=== PATIENT | male | born 1975 | race Caucasian/White ===

== ENCOUNTER 2018-10-27 13:35 | Emergency (ER) | payer OTHER ==
--- OUTSIDE RECORDS SUMMARY | 2018-10-27 13:37 | XMS REPORT | Clinical Summary ---
:1975 [facility] [address] [place] [address] Care Team Providers Name Role Phone Asked, No Pcp Primary Care Provider Unavailable Allergies Active Allergy Reactions Severity Noted Date Comments Bee Venom Protein (Honey Bee) 10/21/2016 Penicillins 10/21/2016 Medications Not on file Active Problems Not on file Social History Tobacco Use Types Packs/Day Years Used Date Current Every Day Smoker Alcohol Use Drinks/Week oz/Week Comments Yes Sex Assigned at Date Recorded Not on file Job Start Date Occupation Industry Not on file Not on file Not on file Travel History Travel Start Travel End No recent travel history available. Last Filed Vital Signs Not on file Plan of Treatment Not on file Results Not on fileafter 10/26/2017 Insurance Payer Benefit Plan / Group Subscriber ID Type Phone Address [facility] xxxxxxxxx (Work) [employer] Self 1975 [employer] (Home) [employer] [phone] [place], [place] (Work) [phone] Advance Directives Patient has advance care planning documents on file. For more information, please contact:[facility] [place] [address]
[2018-10-27 14:09] LABS: Absolute Lymphocytes (CBC) 1.7 K/uL (0.7-4.9); Absolute Monocytes 0.4 K/uL (0.1-1.3); Absolute Neutrophil 1.7 K/uL (1.8-8.0); Basophils % 2.2 % (0-1.3); Eosinophils % 4.4 % (0-4.4); Hematocrit 43.6 % (39.6-49.0); Lymphocytes % 41.3 % (15.3-44.8); MPV 8.6 fL (7.6-11.3); Monocytes % 10.8 % (3.3-12.3); RBC Red Blood Cell Count 4.72 M/uL (4.33-5.43)
[2018-10-27] MEDS ORDERED: ASPIRIN 81 MG CHEWABLE TABLET ONE (14:14)
[2018-10-27] MEDS ORDERED: NA CHLORIDE 0.9% 1,000 ML ONE (14:14)
[2018-10-27 14:29] LABS: ALT/SGPT 33 U/L (12-78); AST/SGOT 14 U/L (15-37); Albumin 3.7 g/dL (3.4-5.0); Alkaline Phosphatase 73 U/L (45-117); BUN Blood Urea Nitrogen 22 mg/dL (7-18); Bicarbonate 27 mmol/L (21-32); Bilirubin Direct < 0.1 mg/dL (0-0.2); Bilirubin Total 0.2 mg/dL (0.2-1.0); Glucose Level 126 mg/dL (74-106); Lipase 258 U/L (73-393); Magnesium 2.2 mg/dL (1.8-2.4); NT PRO-BNP 6 pg/mL (<125); Potassium 4.4 mmol/L (3.5-5.1); Protein, Total 6.6 g/dL (6.4-8.2); Sodium Level 141 mmol/L (136-145); Troponin (Emerg Dept Use Only) < 0.02 ng/mL (0.0-0.045)
[2018-10-27 14:36] LABS: Protime INR 0.97
--- NOTE | 2018-10-27 15:05 | ER ---
Nurse's Notes [facility] Name: Dung Carr Age: 43 yrs Sex: Male : 1975 Arrival Date: 10/27/2018 Time: 13:38 Bed 23 Private MD: Diagnosis: Chest pain, unspecified;Essential (primary) hypertension Presentation: 10/27 13:47 Presenting complaint: Patient states: Family hx of [place], DAD,BROTHER,KRISTI, reports sg having left sided chest pain x1 week radiates now down into the left arm , numbness to pinky and fourth fingers at this time, denies SOB/DIZZINESS/N/V/D/FEVER. 13:48 Acuity: GERONIMO 3 sg 14:39 Transition of care: patient was not received from another setting of care. Onset of la1 symptoms was October 27, 2018. Risk Assessment: Do you want to hurt yourself or someone else? Patient reports no desire to harm self or others. Initial Sepsis Screen: Does the patient meet any 2 criteria? No. Patient's initial sepsis screen is negative. Does the patient have a suspected source of infection? No. Patient's initial sepsis screen is negative. Care prior to arrival: None. 14:39 Method Of Arrival: Ambulatory la1 Historical: - Allergies: 13:46 No Known Allergies; sg - Home Meds: 13:46 None [Active]; sg - PMHx: 13:46 None; sg - PSHx: 13:46 Intestine Repair; sg - Immunization history:: Adult Immunizations up to date. - Social history:: Smoking status: Patient/guardian denies using tobacco. - Ebola Screening: : Patient negative for fever greater than or equal to 101.5 degrees Fahrenheit, and additional compatible Ebola Virus Disease symptoms Patient denies exposure to infectious person Patient denies travel to an Ebola-affected area in the 21 days before illness onset No symptoms or risks identified at this time. Screenin:38 Abuse screen: Denies threats or abuse. Nutritional screening: No deficits noted. la1 Tuberculosis screening: No symptoms or risk factors identified. Fall Risk None identified. Assessment: 14:38 General: Appears in no apparent distress. Behavior is calm, cooperative. Pain: la1 Complains of pain in chest. Neuro: Level of Consciousness is awake, alert, obeys commands, Oriented to person, place, time, situation. Cardiovascular: Heart tones S1 S2 present Capillary refill < 3 seconds Patient's skin is warm and dry. Rhythm is sinus rhythm. Respiratory: Airway is patent Trachea midline Respiratory effort is even, unlabored, Respiratory pattern is regular, symmetrical, Breath sounds are clear bilaterally. GI: Bowel sounds present X 4 quads. Abd is soft and non tender X 4 quads. : No signs and/or symptoms were reported regarding the genitourinary system. 15:19 Reassessment: Patient appears in no apparent distress at this time. No changes from la1 previously documented assessment. Patient and/or family updated on plan of care and expected duration. Pain level reassessed. Vital Signs: 13:46 Weight 68.04 kg; Height 5 ft. 3 in. (160.02 cm); sg 13:47 BP 128 / 88; Pulse 80; Resp 17; Temp 98.0; Pulse Ox 100% on R/A; sg 15:18 BP 125 / 71; Pulse 86; Resp 18; Pulse Ox 97% on R/A; la1 13:46 Body Mass Index 26.57 (68.04 kg, 160.02 cm) sg ED Course: 13:38 Patient arrived in ED. as 13:46 Victoriano Umanzor MD is Attending Physician. misty 13:46 Arm band placed on. sg 13:47 Singh Ann RN is Primary Nurse. la1 13:48 Triage completed. sg 14:39 Bed in low position. Call light in reach. Side rails up X 1. la1 14:39 Inserted saline lock: 20 gauge in right forearm, using aseptic technique. Blood la1 collected. 15:04 Ady Krishna MD is Referral Physician. misty 15:19 IV discontinued, intact, bleeding controlled, No redness/swelling at site. Pressure la1 dressing applied. 15:19 No provider procedures requiring assistance completed. la1 15:41 XRAY Chest (1 view) In Process Unspecified. EDMS Administered Medications: 14:06 Drug: NS 0.9% 1000 ml Route: IV; Rate: 1 bolus; Site: right forearm; la1 15:19 Follow up: IV Status: Completed infusion la1 14:06 Drug: Aspirin Chewable Tablet 162 mg Route: PO; la1 15:19 Follow up: Response: No adverse reaction la1 Outcome: 15:04 Discharge ordered by . misty 15:19 Discharged to home ambulatory. la1 15:19 Condition: stable 15:19 Discharge instructions given to patient, Instructed on discharge instructions, follow up and referral plans. medication usage, Demonstrated understanding of instructions, follow-up care, medications, Prescriptions given X 1. 15:19 Patient left the ED. la1 Signatures: Dispatcher [employer] EDMS Joshua Lobo RN RN sg Anderson, Corey, MD MD cha Martinez, Amelia as Attema, Lee, RN RN la1
--- NOTE | 2018-10-27 15:05 | EDPHYS ---
Physician Documentation [facility] Name: Dung Carr Age: 43 yrs Sex: Male : 1975 Arrival Date: 10/27/2018 Time: 13:38 Bed 23 Private MD: ED Physician Victoriano Umanzor HPI: 10/27 13:56 This 43 yrs old Male presents to ER via Unassigned with complaints of misty Abdominal Pain, Chest Pain, Numbness Of Hand. 13:56 The patient or guardian reports chest pain that is located primarily in the substernal misty area, anterior chest wall. Onset: 2 day(s) ago. The pain radiates to the left arm. Associated signs and symptoms: The patient has no apparent associated signs or symptoms. The chest pain is described as sharp. Duration: The patient or guardian reports multiple episodes, with no pattern. Severity of pain: At its worst the pain was mild in the emergency department the pain has resolved and did so just prior to arrival. The patient has experienced similar episodes in the past, a few times. Historical: - Allergies: 13:46 No Known Allergies; sg - Home Meds: 13:46 None [Active]; sg - PMHx: 13:46 None; sg - PSHx: 13:46 Intestine Repair; sg - Immunization history:: Adult Immunizations up to date. - Social history:: Smoking status: Patient/guardian denies using tobacco. - Ebola Screening: : Patient negative for fever greater than or equal to 101.5 degrees Fahrenheit, and additional compatible Ebola Virus Disease symptoms Patient denies exposure to infectious person Patient denies travel to an Ebola-affected area in the 21 days before illness onset No symptoms or risks identified at this time. ROS: 13:56 Constitutional: Negative for fever, chills, and weight loss, Eyes: Negative for injury, misty pain, redness, and discharge, ENT: Negative for injury, pain, and discharge, Neck: Negative for injury, pain, and swelling, Cardiovascular: Negative for chest pain, palpitations, and edema, Respiratory: Negative for shortness of breath, cough, wheezing, and pleuritic chest pain, Abdomen/GI: Negative for abdominal pain, nausea, vomiting, diarrhea, and constipation, Back: Negative for injury and pain, : Negative for injury, bleeding, discharge, and swelling, MS/Extremity: Negative for injury and deformity, Skin: Negative for injury, rash, and discoloration, Neuro: Negative for headache, weakness, numbness, tingling, and seizure, Psych: Negative for depression, anxiety, suicide ideation, homicidal ideation, and hallucinations, Allergy/Immunology: Negative for hives, rash, and allergies, Endocrine: Negative for neck swelling, polydipsia, polyuria, polyphagia, and marked weight changes, Hematologic/Lymphatic: Negative for swollen nodes, abnormal bleeding, and unusual bruising. Exam: 13:57 Constitutional: This is a well developed, well nourished patient who is awake, alert, misty and in no acute distress. Head/Face: Normocephalic, atraumatic. Eyes: Pupils equal round and reactive to light, extra-ocular motions intact. Lids and lashes normal. Conjunctiva and sclera are non-icteric and not injected. Cornea within normal limits. Periorbital areas with no swelling, redness, or edema. ENT: Nares patent. No nasal discharge, no septal abnormalities noted. Tympanic membranes are normal and external auditory canals are clear. Oropharynx with no redness, swelling, or masses, exudates, or evidence of obstruction, uvula midline. Mucous membranes moist. Neck: Trachea midline, no thyromegaly or masses palpated, and no cervical lymphadenopathy. Supple, full range of motion without nuchal rigidity, or vertebral point tenderness. No Meningismus. Chest/axilla: Normal chest wall appearance and motion. Nontender with no deformity. No lesions are appreciated. Cardiovascular: Regular rate and rhythm with a normal S1 and S2. No gallops, murmurs, or rubs. Normal PMI, no JVD. No pulse deficits. Respiratory: Lungs have equal breath sounds bilaterally, clear to auscultation and percussion. No rales, rhonchi or wheezes noted. No increased work of breathing, no retractions or nasal flaring. Abdomen/GI: Soft, non-tender, with normal bowel sounds. No distension or tympany. No guarding or rebound. No evidence of tenderness throughout. Back: No spinal tenderness. No costovertebral tenderness. Full range of motion. Male : Normal genitalia with no discharge or lesions. Skin: Warm, dry with normal turgor. Normal color with no rashes, no lesions, and no evidence of cellulitis. MS/ Extremity: Pulses equal, no cyanosis. Neurovascular intact. Full, normal range of motion. Neuro: Awake and alert, GCS 15, oriented to person, place, time, and situation. Cranial nerves II-XII grossly intact. Motor strength 5/5 in all extremities. Sensory grossly intact. Cerebellar exam normal. Normal gait. Psych: Awake, alert, with orientation to person, place and time. Behavior, mood, and affect are within normal limits. 14:02 Musculoskeletal/extremity: DVT Exam: No signs of deep vein thrombosis. no pain, no misty swelling, no tenderness, negative Homans' sign noted on exam, no appreciated bluish discoloration, no erythema, no increased warmth. Vital Signs: 13:46 Weight 68.04 kg; Height 5 ft. 3 in. (160.02 cm); sg 13:47 BP 128 / 88; Pulse 80; Resp 17; Temp 98.0; Pulse Ox 100% on R/A; sg 15:18 BP 125 / 71; Pulse 86; Resp 18; Pulse Ox 97% on R/A; la1 13:46 Body Mass Index 26.57 (68.04 kg, 160.02 cm) sg MDM: 13:46 Patient medically screened. [facility] 13:58 Data reviewed: vital signs, nurses notes, lab test result(s), EKG, radiologic studies. 10/27 13:55 Order name: Basic Metabolic Panel; Complete Time: 15:04 10/27 13:55 Order name: CBC with Diff; Complete Time: 15:04 10/27 13:55 Order name: LFT's; Complete Time: 15:04 10/27 13:55 Order name: Magnesium; Complete Time: 15:04 10/27 13:55 Order name: NT PRO-BNP; Complete Time: 15:04 10/27 13:55 Order name: PT-INR; Complete Time: 15:04 10/27 13:55 Order name: Troponin (emerg Dept Use Only); Complete Time: 15:04 10/27 13:55 Order name: XRAY Chest (1 view) 10/27 13:55 Order name: EKG; Complete Time: 13:56 10/27 13:55 Order name: D-Dimer; Complete Time: 15:04 10/27 13:55 Order name: Lipase; Complete Time: 15:04 [facility] 10/27 15:15 Order name: Urine Dipstick--Ancillary (enter results) ms 10/27 13:55 Order name: Cardiac monitoring; Complete Time: 15:08 [facility] 10/27 13:55 Order name: EKG - Nurse/Tech; Complete Time: 14:06 [facility] 10/27 13:55 Order name: IV Saline Lock; Complete Time: 14:06 [facility] 10/27 13:55 Order name: Labs collected and sent; Complete Time: 14:06 [facility] 10/27 13:55 Order name: O2 Per Protocol; Complete Time: 14:06 [facility] 10/27 13:55 Order name: O2 Sat Monitoring; Complete Time: 14:06 [facility] 10/27 13:56 Order name: Urine Dipstick-Ancillary (obtain specimen); Complete Time: 15:08 [facility] Administered Medications: 14:06 Drug: NS 0.9% 1000 ml Route: IV; Rate: 1 bolus; Site: right forearm; la1 15:19 Follow up: IV Status: Completed infusion la1 14:06 Drug: Aspirin Chewable Tablet 162 mg Route: PO; la1 15:19 Follow up: Response: No adverse reaction la1 Disposition: 10/27/18 15:04 Discharged to Home. Impression: Chest pain, unspecified, Essential (primary) hypertension. - Condition is Stable. - Discharge Instructions: Nonspecific Chest Pain, Nonspecific Chest Pain, [id number], Aspirin and Your Heart. - Prescriptions for Toprol XL 25 mg Oral Tablet - take 1 tablet by ORAL route once daily; 20 tablet. - Medication Reconciliation Form, Thank You Letter, Antibiotic Education, Prescription Opioid Use, Work release form form. - Follow up: Private Physician; When: 2 - 3 days; Reason: Recheck today's complaints, Continuance of care, Re-evaluation by your physician. Follow up: Ady Krishna; When: 2 - 3 days; Reason: Recheck today's complaints, Re-evaluation by your physician. - Problem is new. - Symptoms have improved. Signatures: Dispatcher [employer] EDJoshua Luo RN RN Victoriano Dixon MD MD cha Attema, Lee, RN RN la1 Corrections: (The following items were deleted from the chart) 15:19 15:04 10/27/2018 15:04 Discharged to Home. Impression: Chest pain, unspecified; la1 Essential (primary) hypertension. Condition is Stable. Discharge Instructions: Nonspecific Chest Pain, Nonspecific Chest Pain, [id number], Aspirin and Your Heart. Prescriptions for Toprol XL 25 mg Oral Tablet - take 1 tablet by ORAL route once daily; 20 tablet. and Forms are Medication Reconciliation Form, Thank You Letter, Antibiotic Education, Prescription Opioid Use. Follow up: Private Physician; When: 2 - 3 days; Reason: Recheck today's complaints, Continuance of care, Re-evaluation by your physician. Follow up: Ady Krishna; When: 2 - 3 days; Reason: Recheck today's complaints, Re-evaluation by your physician. Problem is new. Symptoms have improved. misty
--- NOTE | 2018-10-27 16:17 | RAD REPORT ---
EXAM DESCRIPTION: Rober Single View10/27/2018 3:42 pm CLINICAL HISTORY: Chest pain COMPARISON: none FINDINGS: The lungs appear clear of acute infiltrate. The heart is normal size IMPRESSION: No acute abnormalities displayed
[2018-10-27 20:38] LABS: Urine Blood NEGATIVE (NEG); Urine Glucose NEGATIVE (NEG); Urine Protein NEGATIVE (NEG)
--- NOTE | 2018-10-28 08:49 | EKG ---
Test Date: 2018-10-27 Test Time: 13:55:40 Saw Straightener: EVELYNT MEASUREMENT RESULTS: Intervals: Rate: 81 HI: 136 QRSD: 76 QT: 350 QTc: 406 [place]: P: 51 HI: 136 QRS: 37 T: 25 INTERPRETIVE STATEMENTS: Normal sinus rhythm Normal ECG No previous ECG available for comparison Electronically Signed On 10-28-18 08:48:43 GIFTED TEACHER by Alexis Guadalupe
== END 2018-10-27 15:19 | disposition home or self-care (01) ==
LOC: ER 13:35
DX: R07.9 Chest pain, unspecified (principal); I10 Essential (primary) hypertension
CPT/HCPCS: 36415; 71045; 80048; 80076; 81003; 83690; 83735; 83880; 84484; 85025; 85379; 85610; 93005; 96360; 99284; J7030